=== PATIENT | female | born 1975 | race Two or more races ===

== ENCOUNTER 2017-07-02 07:44 | Emergency (ER) | payer MEDICAID ==
[~2017-07-02] VITALS: Ht 154.9 cm; Wt 73.5 kg
[2017-07-02 08:01] VITALS: Ht 154.9 cm; Wt 73.5 kg
[2017-07-02 08:37] VITALS: BP 112/73
== END 2017-07-02 08:37 | disposition home or self-care (01) ==
LOC: ED 07:44
DX: B34.9 Viral infection, unspecified (principal); Z88.0 Allergy status to penicillin